=== PATIENT | male | born 1975 | race Caucasian/White ===

== ENCOUNTER 2023-04-08 00:06 | Emergency (ER) | payer OTHER ==
--- OUTSIDE RECORDS SUMMARY | 2023-04-08 00:10 | XMS REPORT | Continuity of Care Document ---
:[address] [facility] t Address [address] [facility] [address] [place] [address] Care Team Providers Name Role Phone WYATT MIRANDA Attending Clinician Unavailable WYATT MIRANDA Admitting Clinician Unavailable Problems This patient has no known problems. Allergies, Adverse Reactions, Alerts This patient has no known allergies or adverse reactions. Medications This patient has no known medications. Procedures This patient has no known procedures. Encounters Start End Encounter Admission Attending Care Care Encounter Source Date/Time Date/Time Type Type Clinicians Facility Department ID 2016-12-09 2016-12-14 Inpatient 1 SHRUTHI MIRANDA ADP [id number] [address] [place] [address] 11:05:00 14:12:00 WYATT leon ([facility]) Results This patient has no known results. Notes Date/Time Note Provider Source 2017-01-19 15:24:05-00:00 [facility] [address] [address] Patient Name: PAUL GARCIA Patient#: [id number] Admission Date: 12/09/2016 Discharge Date: 12/14/2016 Age/Gender: 41/M Date of : 1975 HSSV//BED: ADP/230/F Admitting Phys: Wyatt Miranda MD DISCHARGE SUMMARY DATE OF ADMISSION: 12/09/2016 DATE OF DISCHARGE: 12/14/2016 DISPOSITION The patient was discharged to fdc DISCHARGE DIAGNOSIS Posttraumatic stress disorder. ADMITTING DIAGNOSIS Posttraumatic stress disorder. REASON FOR HOSPITALIZATION Increasing anxiety and depressive symptoms george love to PTSD diagnosis. FOLLOWUP The patient will follow up with MH/MR services. DISCHARGE MEDICATIONS The patient is discharged with the following med ications: Benztropine 1 mg at bedtime, Risperdal 1 mg at bedtime. HOSPITAL COURSE AND SUMMARY Patient reporting increasing depressive symptoms , anxiety, and depression. Patient has been wandering from different places . States that he is wanting hospitalization. Patient stabilized [facility]. No active psychiatric symptoms. Denied feeling suicidal or imminently dangerous to self or others. No auditory or visual hallucinations. No active suicidal thoughts. The patient was discharged to outpatient service s and aftercare. LABORATORY DATA Laboratories were reviewed and were within brian l limits at time of discharge from [facility]. Laurel Varghese MD TT: 01/19/2017 15:24:05 SB/MAYRAML /[id number] Electronically Authenticated and Edited by: LAUREL VARGHESE MD On 01/20/2017 08:47 AM CDT Legally authenticated by HALIMA ALBARADO 2017-01-20 08:47:10
[2023-04-08 01:19] LABS: Absolute Lymphocytes (CBC) 1.2 K/uL (0.7-4.9); Hematocrit 34.9 % (39.6-49.0); Lymphocytes % 20.2 % (15.3-44.8); MCV 96.3 fL (80-100); MPV 7.2 fL (7.6-11.3); RBC Red Blood Cell Count 3.62 M/uL (4.33-5.43)
[2023-04-08 01:20] LABS: Protime INR 1.17
[2023-04-08 01:31] LABS: ALT/SGPT 33 U/L (16-61); AST/SGOT 36 U/L (15-37); Albumin 4.8 g/dL (3.4-5.0); Alkaline Phosphatase 36 U/L (45-117); BUN Blood Urea Nitrogen 15 mg/dL (7-18); Bicarbonate 26 mEq/L (21-32); Bilirubin Direct 0.3 mg/dL (0-0.2); Bilirubin Total 1.3 mg/dL (0.2-1.0); Glomerular Filtration Rate 93 ml/min (=/>90); Glucose Level 98 mg/dL (74-106); Potassium 3.6 mEq/L (3.5-5.1); Protein, Total 8.3 g/dL (6.4-8.2); Sodium Level 130 mEq/L (136-145)
[2023-04-08 01:45] LABS: Specific Gravity 1.007 (1.005-1.030); Urine Bacteria <20 /HPF (<20); Urine Bilirubin NEGATIVE (Negative); Urine Blood Trace (Negative); Urine Clarity Clear (Clear); Urine Color Light-Yellow (Yellow); Urine Glucose NEGATIVE (Negative); Urine Protein TRACE (Negative); Urine RBC <5 /HPF (None Seen); Urine Urobilinogen Normal (Normal)
[2023-04-08] MEDS ORDERED: NA CHLORIDE 0.9% 1,000 ML ONE (01:52)
[2023-04-08 01:59] LABS: Barbiturates NEGATIVE (NEGATIVE); Benzodiazepines NEGATIVE (NEGATIVE); Cocaine NEGATIVE (NEGATIVE); METHAMPHETAM NEGATIVE (NEGATIVE); Methadone NEGATIVE (NEGATIVE); Opiates NEGATIVE (NEGATIVE); Phencyclidine NEGATIVE (NEGATIVE); THC Cannibis NEGATIVE (NEGATIVE)
--- NOTE | 2023-04-08 02:02 | ER ---
Nurse's Notes [facility] Name: Jose Salinas Age: 47 yrs Sex: Male : 1975 Arrival Date: 04/08/2023 Time: 00:06 Bed 20 Private MD: Diagnosis: Other depressive episodes Presentation: 04/08 00:12 Chief complaint: Patient states: "I have been felling depressed, and having anxiety, as6 and having trouble with my PTSD". Coronavirus screen: At this time, the client does not indicate any symptoms associated with coronavirus-19. Ebola Screen: No symptoms or risks identified at this time. Initial Sepsis Screen: Does the patient meet any 2 criteria? No. Patient's initial sepsis screen is negative. Does the patient have a suspected source of infection? No. Patient's initial sepsis screen is negative. Risk Assessment: Do you want to hurt yourself or someone else? Other: pt does not feel suicidal today but has had SI in the past. pt reports never attempted to harm himself. Onset of symptoms is unknown. 00:12 Method Of Arrival: Ambulatory as6 00:12 Acuity: KELI 2 as6 Historical: - Allergies: 00:19 Haldol; as6 00:19 Trazodone; as6 00:19 Seroquel; as6 - PMHx: 00:19 Depressive disorder; Anxiety; PTSD; as6 - PSHx: 00:19 None; as6 - Immunization history:: Client reports having NOT received the Covid vaccine. - Social history:: Smoking status: Patient reports the use of cigarette tobacco products, smokes two packs cigarettes per day. Screenin:20 Abuse screen: Denies threats or abuse. Denies injuries from another. Nutritional aa9 screening: No deficits noted. Tuberculosis screening: No symptoms or risk factors identified. Assessment: 00:55 General: Appears uncomfortable, slender, Behavior is cooperative, anxious. Pain: Denies aa9 pain. Neuro: Level of Consciousness is awake, alert, obeys commands, Oriented to person, place, time, situation. Respiratory: Airway is patent Respiratory effort is even, unlabored. 00:55 General: upon suicide assessment pt states, "I have had thoughts of suicide in the aa9 past, but this marissa when I feel like I am going to think about it I distract myself with music or my dog. I don't want to have these thoughts, I have my dog to take care of. I think I just want to speak with someone about it.". Cardiovascular: Patient's skin is warm and dry. GI: No signs and/or symptoms were reported involving the gastrointestinal system. : No signs and/or symptoms were reported regarding the genitourinary system. Derm: Skin is intact, is thin. Musculoskeletal: No signs and/or symptoms reported regarding the musculoskeletal system. 02:00 Reassessment: Marissa KURTZ spoke with pt, pt refused to remove jonnie pants and knee high aa9 boots, pt has service dog with harness and leash at bedside. pt moved rooms for suicide ideation precaution. 02:57 General: spoke to [facility]. they will come out for evaluation . as6 02:58 Reassessment: pt denies suicidal thoughts at this time reports is visiting brother and kl they had an argument and patient had brief thought of self harm reports has had an attempt many years ago due to medications he was on now just would like to speak with someone pt service dog at bedside. 07:37 Reassessment: [facility] staff in room with patient. nj1 09:15 Reassessment: Patient appears in no apparent distress at this time. Patient and/or nj1 family updated on plan of care and expected duration. Pain level reassessed. Patient is alert, oriented x 3, equal unlabored respirations, skin warm/dry/pink. Pt comes out to rooms door requesting for us to discontinue his IV. 09:33 Reassessment: Vital signs deferred due to "service dog" in room barking when he sees nj1 anyone that is not the patient, as well as when anyone enters the room. Charge nurse and ED physician aware. 09:36 Reassessment: Patient appears in no apparent distress at this time. Patient is alert, nj1 oriented x 3, equal unlabored respirations, skin warm/dry/pink. Psych: 09:36 [place] Suicide Severity Screening: SINCE LAST ASKED, pt answer NO to Have you mona actually had thoughts about killing yourself?. See Suicide Documentation packets. Vital Signs: 00:12 BP 153 / 103; Pulse 99; Resp 18 S; Temp 98.4(TE); Pulse Ox 100% on R/A; Weight 68.04 kg as6 (R); Height 6 ft. 1 in. (R); Pain 0/10; 00:12 Body Mass Index 19.79 (68.04 kg, 185.42 cm) as6 00:12 Pain Scale: Adult as6 ED Course: 00:10 Patient arrived in ED. ja2 00:11 Teodoro Ann PA is PHCP. cp 00:11 Santos Linares MD is Attending Physician. cp 00:19 Triage completed. as6 00:21 Arm band placed on. as6 00:22 Wen Nam, RN is Primary Nurse. aa9 00:51 Acetaminophen Sent. rv 00:51 Basic Metabolic Panel Sent. rv 00:51 CBC with Diff Sent. rv 00:51 ETOH Level Sent. rv 00:51 Hepatic Function Sent. rv 00:51 PT-INR Sent. rv 00:51 Ptt, Activated Sent. rv 00:51 Salicylate Sent. rv 00:51 Inserted saline lock: 20 gauge in right forearm, using aseptic technique. Blood rv collected. 09:15 IV discontinued, intact, bleeding controlled. nj1 Administered Medications: 01:46 Drug: NS 0.9% IV 1000 ml Route: IV; Rate: 1 bolus; Site: right forearm; rv Outcome: 02:01 ER care complete, transfer ordered by MD. cp 09:08 Discharge ordered by MD. rn 09:36 Patient left the ED. iw Signatures: Sharmila Salmeron RN Sadia Bolanos RN RN iw Nieto, Roman, MD MD rn Page, Corey, PA PA cp Fer Harkins RN RN Jolie Lima ja2 Winston Saenz RN RN as6 Wen Nam, RN SYDNI aa9 Antonia Rice RN RN db Jaco, Norma, RN RN nj1 Corrections: (The following items were deleted from the chart) 00:41 00:12 Acuity: KELI 3 as6 as6 18:05 10:09 Patient left the ED. db iw 18:05 09:30 Patient left the ED. iw iw
--- NOTE | 2023-04-08 02:03 | EDPHYS ---
Physician Documentation [facility] Name: Jose Salinas Age: 47 yrs Sex: Male : 1975 Arrival Date: 04/08/2023 Time: 00:06 Bed 20 Private MD: ED Physician Santos Linares HPI: 04/08 00:50 This 47 yrs old Male presents to ER via Ambulatory with complaints of Psych Problem. cp 00:50 The patient presents to the emergency department with depression, suicide ideation. cp Onset: The symptoms/episode began/occurred chronic. Past psychiatric history: Prior diagnosis: depression, Anxiety, PTSD. Associated signs and symptoms: Pertinent negatives: abdominal pain, chest pain, fever, hallucinations, homicidal ideation, paranoia, substance abuse. Historical: - Allergies: 00:19 Haldol; as6 00:19 Trazodone; as6 00:19 Seroquel; as6 - PMHx: 00:19 Depressive disorder; Anxiety; PTSD; as6 - PSHx: 00:19 None; as6 - Immunization history:: Client reports having NOT received the Covid vaccine. - Social history:: Smoking status: Patient reports the use of cigarette tobacco products, smokes two packs cigarettes per day. ROS: 00:55 Constitutional: Negative for body aches, chills, fever, poor PO intake. cp 00:55 Eyes: Negative for injury, pain, redness, and discharge. cp 00:55 Cardiovascular: Negative for chest pain. 00:55 Respiratory: Negative for cough, shortness of breath, wheezing. 00:55 Abdomen/GI: Negative for abdominal pain, vomiting, diarrhea, constipation. 00:55 Psych: Positive for depression, suicidal ideation, Negative for auditory cp hallucinations, visual hallucinations, homicidal ideation, suicide gesture. 00:55 Neuro: Negative for altered mental status, dizziness, headache, weakness. cp 00:55 All other systems are negative. Exam: 00:57 ECG was reviewed by the Attending Physician. cp 01:00 Constitutional: The patient appears in no acute distress, alert, awake, cp non-diaphoretic, non-toxic, well developed, well nourished. 01:00 Head/Face: Normocephalic, atraumatic. cp 01:00 Eyes: Periorbital structures: appear normal, Conjunctiva: normal, no exudate, no injection, Sclera: no appreciated abnormality, Lids and lashes: appear normal, bilaterally. 01:00 ENT: External ear(s): are unremarkable, Nose: is normal, Mouth: Lips: moist, Oral mucosa: moist, Posterior pharynx: is normal, airway is patent, no erythema, no exudate. 01:00 Chest/axilla: Inspection: normal. 01:00 Cardiovascular: Rate: normal, Rhythm: regular. 01:00 Respiratory: the patient does not display signs of respiratory distress, Respirations: normal, no use of accessory muscles, no retractions, labored breathing, is not present, Breath sounds: are clear throughout, no decreased breath sounds, no stridor, no wheezing. 01:00 Abdomen/GI: Exam negative for discomfort, distension, guarding, Inspection: abdomen appears normal. 01:00 Neuro: Orientation: to person, place \T\ time. Mentation: is normal, Motor: moves all fours, strength is normal, Gait: is steady. Vital Signs: 00:12 BP 153 / 103; Pulse 99; Resp 18 S; Temp 98.4(TE); Pulse Ox 100% on R/A; Weight 68.04 kg as6 (R); Height 6 ft. 1 in. (R); Pain 0/10; 00:12 Body Mass Index 19.79 (68.04 kg, 185.42 cm) as6 00:12 Pain Scale: Adult as6 MDM: 00:31 Patient medically screened. 02:01 Data reviewed: vital signs, nurses notes, lab test result(s), EKG. Awaiting: [facility] body sander. 07:13 Transition of care: After a detail discussion of the patient's case, care is sp4 transferred to Jake Saenz MD. 09:07 Differential diagnosis: depression. ED course: Pt evaluated by [facility], deemed safe for discharge, signed out to me by Dr. Linares who also felt patient was safe for discharge, will dc home with f/u and return precautions. No suicidal or homicidal ideations.. 04/08 00:41 Order name: Acetaminophen; Complete Time: 01:40 cp 04/08 00:41 Order name: Basic Metabolic Panel; Complete Time: 01:40 cp 04/08 01:41 Interpretation: Normal except: NA 130. cp 04/08 00:41 Order name: CBC with Diff; Complete Time: 01:40 cp 04/08 01:41 Interpretation: Normal except: RBC 3.62; HGB 12.1; HCT 34.9; RDW 17.6; MPV 7.2. cp 04/08 00:41 Order name: ETOH Level; Complete Time: 01:40 cp 06 00:41 Order name: Hepatic Function; Complete Time: 01:40 cp 04/08 00:41 Order name: PT-INR; Complete Time: :40 cp 04/08 00:41 Order name: Ptt, Activated; Complete Time: 01:40 cp 04/08 00:41 Order name: Salicylate; Complete Time: :40 cp 04/08 00:41 Order name: Urinalysis w/ reflexes; Complete Time: 02:00 cp 04/08 02:00 Interpretation: Normal except: UBLD Trace; UPROT TRACE. cp 06 00:41 Order name: Urine Drug Screen; Complete Time: 02:00 cp 04/08 02:00 Interpretation: Reviewed. cp 04/08 00:41 Order name: EKG; Complete Time: 00:42 cp 04/08 04:39 Order name: Finger Food EDMS 06/ 00:41 Order name: EKG - Nurse/Tech; Complete Time: 00:51 cp 04/08 00:41 Order name: IV Saline Lock; Complete Time: 00:51 cp 06 00:41 Order name: Labs collected and sent; Complete Time: 00:51 cp 04/08 00:41 Order name: Suicide Precautions; Complete Time: 00:51 cp 04/08 00:41 Order name: Suicide Screening ([place]); Complete Time: 00:51 cp EC:57 Rate is 81 beats/min. Rhythm is regular. DC interval is normal. QRS interval is cp prolonged at 102 msec. QT interval is normal. Interpreted by me. Reviewed by me. Administered Medications: 01:46 Drug: NS 0.9% IV 1000 ml Route: IV; Rate: 1 bolus; Site: right forearm; rv Disposition: 02:33 Co-signature as Attending Physician, Santos Linaers MD I agree with the assessment sp4 and plan of care. I reviewed the patient's care provided by Advanced Practice Provider \T\ agree w/ the diagnosis \T\ care plan. I personally saw the pt \T\ performed a substantive portion of the visit, incldng all aspects of the (History/Exam/Medical Decision Making). Disposition Summary: 04/08/23 09:08 Discharge Ordered Location: Home rn Problem: chronic(04/08/23 09:08) rn Symptoms: have improved(04/08/23 09:08) rn Condition: Stable(04/08/23 09:08) rn Diagnosis - Other depressive episodes rn Followup: rn - With: Private Physician - When: As needed - Reason: Recheck today's complaints, Re-evaluation by your physician Discharge Instructions: - Discharge Summary Sheet rn - Managing Depression, Adult rn Forms: - Medication Reconciliation Form rn - Thank You Letter rn - Antibiotic lead burner helper - Prescription Opioid Use rn Signatures: Dispatcher [employer] EDJake Pena MD MD rn Page, Corey, PA PA cp Vicente, Ronaldo, RN RN rv Winston Saenz RN RN as6 Santos Linares MD MD sp4 Corrections: (The following items were deleted from the chart) 09:08 02:01 Doctor cp rn : 02:01 Psych Facility cp rn :08 02:01 Higher level of care cp rn : 02:01 Stable cp rn : 02:01 an ongoing problem cp rn : 02:01 are unchanged cp rn : 02:01 Suicidal ideations cp rn
[2023-04-08 10:30] VITALS: BP 153/103; TEMP 98.4; O2SAT 100
--- NOTE | 2023-04-08 12:07 | EKG ---
Test Date: 2023-04-08 Test Time: 00:50:16 Cable Inspector: LIZZY MEASUREMENT RESULTS: Intervals: Rate: 80 NC: 180 QRSD: 96 QT: 396 QTc: 456 [place]: P: 64 NC: 180 QRS: 67 T: 63 INTERPRETIVE STATEMENTS: Sinus rhythm with occasional premature ventricular complexes Possible Left atrial enlargement Left ventricular hypertrophy Nonspecific ST and T wave abnormality Abnormal ECG No previous ECG available for comparison Electronically Signed On 04-08-23 12:05:52 CDT by Avtar Crouch
--- NOTE | 2023-04-08 12:07 | EKG ---
Test Date: 2023-04-08 Test Time: 00:50:53 Oral Hygienist: LIZZY MEASUREMENT RESULTS: Intervals: Rate: 81 TN: 184 QRSD: 102 QT: 380 QTc: 441 [place]: P: 63 TN: 184 QRS: 66 T: 61 INTERPRETIVE STATEMENTS: Normal sinus rhythm Possible Left atrial enlargement Left ventricular hypertrophy Abnormal ECG Compared to ECG 04/08/2023 00:50:16 Ventricular premature complex(es) no longer present ST (T wave) deviation no longer present Electronically Signed On 04-08-23 12:05:51 CDT by Avtar Crouch
== END 2023-04-08 10:09 | disposition home or self-care (01) ==
LOC: ER 00:06
DX: F32.89 Other specified depressive episodes (principal); F17.210 Nicotine dependence, cigarettes, uncomplicated; Z88.5 Allergy status to narcotic agent
CPT/HCPCS: 93005 ×2; 85025; 81001; 80048; 36415; 85610; 80076; 85730; 80307; 99284; 80143; 80179; 82077; J7030